=== PATIENT | male | born 2000 | race African-American/Black ===

== ENCOUNTER 2022-01-30 19:26 | Emergency (ER) | payer OTHER ==
[2022-01-30 19:45] VITALS: BP 115/66; PULSE 60; TEMP 98; BMI 24.3
[2022-01-30] MEDS ORDERED: IBUPROFEN 600 MG TABLET (FP) PO ONE ×2 (20:24→20:39)
== END 2022-01-30 21:09 | disposition home or self-care (01) ==
LOC: JERFT 19:26 → JER 19:26 → JERFT 21:09
DX: S80.12XA Contusion of left lower leg, initial encounter (principal); V13.2XXA Unspecified pedal cyclist injured in collision with car, pick-up truck or van in nontraffic accident, initial encounter
CPT/HCPCS: 73130-TC-RT-FY; 73590-TC-LT-FY; 99284-25